=== PATIENT | male | born 1960 | race Caucasian/White ===

== ENCOUNTER 2017-12-02 14:55 | Inpatient (IN) | payer BC, OTHER ==
[~2017-12-02] VITALS: Ht 177.8 cm; Wt 88.6 kg
[2017-12-02 15:35] LABS: BASOPHILS # (AUTO) 0.03 x10^3/uL (0-0.1); BASOPHILS % (AUTO) 0 % (0-1); EOSINOPHILS # (AUTO) 0.03 x10^3/uL (0-0.4); EOSINOPHILS % (AUTO) 0 % (1-7); LYMPHOCYTES # (AUTO) 2.58 x10^3/uL (1-3.4); LYMPHOCYTES % (AUTO) 38 % (22-44); MD NO; MEAN CORPUSCULAR HEMOGLOBIN 29.7 pg (27.5-34.5); MEAN CORPUSCULAR HGB CONC 34.5 g/dL (33.2-36.2); MEAN CORPUSCULAR VOLUME 86.1 fL (81-97); MEAN PLATELET VOLUME 6.2 fL (7.4-10.4); MONOCYTES # (AUTO) 0.43 x10^3/uL (0.2-0.8); MONOCYTES % (AUTO) 6 % (2-9); NEUTROPHILS # (AUTO) 3.78 x10^3/uL (1.8-6.8); NEUTROPHILS % (AUTO) 55 % (42-75); PLATELET COUNT 372 x10^3/uL (130-400); RED BLOOD COUNT 5.63 x10^6/uL (4.38-5.82); RED CELL DISTRIBUTION WIDTH 13.6 % (9.4-14.8)
[2017-12-02 15:46] LABS: ANION GAP 9 mmol/L (5-15); CALCIUM 9.3 mg/dL (8.5-10.1); CHLORIDE 104 mmol/L (98-107); CREATININE 0.91 mg/dL (0.7-1.3)
[2017-12-02 15:47] LABS: ALBUMIN 3.9 g/dL (3.4-5.0)
[2017-12-02 17:12] LABS: TROPONIN I < 0.015 ng/mL (0.000-0.045)
[2017-12-02] MEDS ORDERED: ASPIRIN 325 MG TABLET PO ONE (17:30)
[2017-12-02] MEDS ORDERED: POLYETHYLENE GLYCOL 17 GM PACKET PO PRN (18:00)
[2017-12-02] MEDS ORDERED: ENALAPRILAT 1.25 MG/ML, 2ML IVPush PRN (18:00)
[2017-12-02] MEDS ORDERED: BISACODYL 10 MG SUPP PR PRN (18:00)
[2017-12-02] MEDS ORDERED: ACETAMINOPHEN 325 MG TABLET PO PRN (18:00)
[2017-12-02] MEDS ORDERED: OXYcodone IR 5MG TABLET PO PRN (18:00)
[2017-12-02 18:32] LABS: HCT (SEDRATE) 48.5 % (39.2-51.8)
[2017-12-02] MEDS ORDERED: HEPARIN 5,000 UNITS/ML, 1ML ONE (18:43)
[2017-12-02] MEDS ORDERED: ASPIRIN 325 MG TABLET ONE (18:43)
[2017-12-02] MEDS: HEPARIN 5,000 UNITS/ML, 1ML SQ SCH (18:47)
[2017-12-02 19:10] VITALS: BP 99/61
[2017-12-02] MEDS ORDERED: IBUP200C75 PO (22:40)
[2017-12-02 23:36] LABS: AMPHETAMINE SCREEN, URINE Negative (Negative); BARBITURATE SCREEN, URINE Negative (Negative); BENZODIAZEPINE SCREEN, URINE Negative (Negative); CANNABINOID SCREEN, URINE Negative (Negative); COCAINE SCREEN, URINE Negative (Negative); METHADONE SCREEN, URINE Negative (Negative); OPIATE SCREEN, URINE Negative (Negative)
[2017-12-02 23:49] LABS: TROPONIN I < 0.015 ng/mL (0.000-0.045)
[2017-12-03 01:43] VITALS: BP 111/70
[2017-12-03] MEDS: HEPARIN 5,000 UNITS/ML, 1ML SQ SCH ×3 (01:52→16:59)
[2017-12-03] MEDS: BACLOFEN 10 MG TABLET PO PRN (01:58)
[2017-12-03 05:22] LABS: BASOPHILS # (AUTO) 0.02 x10^3/uL (0-0.1); BASOPHILS % (AUTO) 0 % (0-1); EOSINOPHILS # (AUTO) 0.08 x10^3/uL (0-0.4); EOSINOPHILS % (AUTO) 1 % (1-7); LYMPHOCYTES # (AUTO) 2.33 x10^3/uL (1-3.4); LYMPHOCYTES % (AUTO) 36 % (22-44); MD NO; MEAN CORPUSCULAR HEMOGLOBIN 29.7 pg (27.5-34.5); MEAN CORPUSCULAR HGB CONC 34.5 g/dL (33.2-36.2); MEAN PLATELET VOLUME 6.3 fL (7.4-10.4); MONOCYTES # (AUTO) 0.38 x10^3/uL (0.2-0.8); MONOCYTES % (AUTO) 6 % (2-9); NEUTROPHILS # (AUTO) 3.68 x10^3/uL (1.8-6.8); NEUTROPHILS % (AUTO) 57 % (42-75); PLATELET COUNT 331 x10^3/uL (130-400); RED BLOOD COUNT 5.35 x10^6/uL (4.38-5.82); RED CELL DISTRIBUTION WIDTH 13.4 % (9.4-14.8)
[2017-12-03 05:35] LABS: ALBUMIN 3.5 g/dL (3.4-5.0); CALCIUM 8.9 mg/dL (8.5-10.1); CHLORIDE 103 mmol/L (98-107)
[2017-12-03 05:40] LABS: ANION GAP 8 mmol/L (5-15); CREATININE 0.88 mg/dL (0.7-1.3)
[2017-12-03 05:41] LABS: ALANINE AMINOTRANSFERASE 52 U/L (12-78); ALKALINE PHOSPHATASE 68 U/L (45-117); BILIRUBIN,TOTAL 0.7 mg/dL (0.2-1.0); CHOL/HDL RATIO 5.7; CHOLESTEROL, TOTAL 246 mg/dL (140-239); HDL CHOL % 17 % (26-37); HDL CHOLESTEROL (DIRECT) 43 mg/dL (40-60); TOTAL PROTEIN 7.1 g/dL (6.4-8.2); TRIGLYCERIDES 469 mg/dL (50-200)
[2017-12-03 07:24] VITALS: BP 121/75
[2017-12-03] MEDS: GEMFIBROZIL 600 MG TABLET PO SCH ×2 (09:11→21:00)
[2017-12-03 12:43] VITALS: BP 127/85
[2017-12-03] MEDS: SODIUM CHLORIDE 0.9% 1,000 ML IV SCH (13:38)
[2017-12-03 17:36] VITALS: BP 119/71
[2017-12-03] MEDS ORDERED: GADOBUTROL 10 MMOL/10 ML PFS ONE (19:37)
[2017-12-03 19:59] VITALS: BP 116/75
[2017-12-04 00:10] VITALS: BP 97/65
[2017-12-04] MEDS: SODIUM CHLORIDE 0.9% 1,000 ML IV SCH ×3 (00:16→16:00)
[2017-12-04] MEDS: BACLOFEN 10 MG TABLET PO PRN (00:20)
[2017-12-04] MEDS: HEPARIN 5,000 UNITS/ML, 1ML SQ SCH ×3 (02:09→18:00)
[2017-12-04 06:10] LABS: ALBUMIN 3.2 g/dL (3.4-5.0); ANION GAP 6 mmol/L (5-15); CHLORIDE 107 mmol/L (98-107)
[2017-12-04 06:26] LABS: CALCIUM 8.8 mg/dL (8.5-10.1); CREATININE 0.91 mg/dL (0.7-1.3)
[2017-12-04 07:01] VITALS: BP 106/63
[2017-12-04] MEDS: GEMFIBROZIL 600 MG TABLET PO SCH (10:45)
[2017-12-04 13:18] VITALS: BP 116/64
[2017-12-04] MEDS ORDERED: GEMF600T4 PO (16:15)
== END 2017-12-04 18:17 | disposition home or self-care (01) | DRG 74 ==
LOC: ED 17:10 → EDIP 17:20 → 5SO 19:13 → 4WST 12-03 17:33
PROVIDERS: ADMIT Hospitalist; ATTEND Hospitalist
DX: G70.9 Myoneural disorder, unspecified (principal); E78.1 Pure hyperglyceridemia; R63.4 Abnormal weight loss; M25.80 Other specified joint disorders, unspecified joint; G89.29 Other chronic pain; Z82.49 Family history of ischemic heart disease and other diseases of the circulatory system; Z87.891 Personal history of nicotine dependence; Z68.28 Body mass index [BMI] 28.0-28.9, adult
CPT/HCPCS: 36415; 70450; 71045; 71250; 72156; 72157; 72158; 80048; 80053; 80061; 80307; 82040; 82550; 83690; 83880; 84443; 84484; 85025; 85379; 85651; 93005; 93306; 99285; A9585; J1644; J7030